=== PATIENT | male | born 2000 | race Hispanic/Latino ===

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

== ENCOUNTER 2018-04-29 20:35 | Emergency (ER) | payer BC ==
[2018-04-29] MEDS ORDERED: Ondansetron ODT 8 MG TAB ONE (21:47)
[2018-04-29] MEDS ORDERED: Lidocaine Viscous Sol 2% 15 ml UD Cup ONE (21:47)
[2018-04-29] MEDS ORDERED: Mag-Al 1200 mg/1200 mg/30 ML UDCUP ONE (21:47)
== END 2018-04-29 22:52 | disposition home or self-care (01) ==
LOC: ERS 20:35
DX: K29.70 Gastritis, unspecified, without bleeding (principal)
CPT/HCPCS: 99283

== ENCOUNTER 2018-07-30 20:10 | Emergency (ER) | payer BC, OTHER ==
[2018-07-30] MEDS ORDERED: Bacitracin Zinc 1 Packet ONE (20:38)
[2018-07-30] MEDS ORDERED: Ibuprofen 200 MG TAB ONE (20:59)
== END 2018-07-30 21:14 | disposition home or self-care (01) ==
LOC: ERS 20:10
DX: L91.0 Hypertrophic scar (principal)
CPT/HCPCS: 99283

== ENCOUNTER 2022-06-01 10:52 | Emergency (ER) | payer BC, OTHER, SELFPAY | END 2022-06-01 11:48 | disposition home or self-care (01) | LOC: ERS 10:52 | DX: R05.9 Cough, unspecified (principal); Z20.822 Contact with and (suspected) exposure to COVID-19 | CPT/HCPCS: 99283; U0003; U0005 ==

== ENCOUNTER 2022-07-16 11:03 | Emergency (ER) | payer SELFPAY ==
[2022-07-16] MEDS ORDERED: Acetaminophen 500 MG TAB ONE (12:05)
[2022-07-16] MEDS ORDERED: Ondansetron ODT 4 MG TAB ONE (12:05)
== END 2022-07-16 13:25 | disposition home or self-care (01) ==
LOC: ERS 11:03
DX: J10.1 Influenza due to other identified influenza virus with other respiratory manifestations (principal); Z20.822 Contact with and (suspected) exposure to COVID-19
CPT/HCPCS: 87081; 87430; 87804; 99283; Q0162; U0003; U0005

== ENCOUNTER 2023-04-30 20:32 | Emergency (ER) | payer SELFPAY ==
[2023-04-30] MEDS ORDERED: Ondansetron PF 4 MG/2 ML Vial ONE (21:46)
[2023-04-30] MEDS ORDERED: Acetaminophen 500 MG TAB ONE (21:46)
[2023-04-30] MEDS ORDERED: Ondansetron ODT 4 MG TAB ONE (21:47)
[2023-04-30 22:29] LABS: SARS-CoV-2 NAA Rapid Test Not Detected (NotDetected)
== END 2023-04-30 22:30 | disposition home or self-care (01) ==
LOC: ERS 20:32
DX: J02.9 Acute pharyngitis, unspecified (principal); Z20.822 Contact with and (suspected) exposure to COVID-19
CPT/HCPCS: 87081; 87430; 99284; J2405; Q0162

== ENCOUNTER 2023-05-02 11:40 | Emergency (ER) | payer SELFPAY | END 2023-05-02 13:21 | disposition home or self-care (01) | LOC: ERS 11:40 | DX: J06.9 Acute upper respiratory infection, unspecified (principal) | CPT/HCPCS: 99283 ==

== ENCOUNTER 2024-01-17 17:36 | Emergency (ER) | payer BC, SELFPAY | END 2024-01-17 19:20 | disposition home or self-care (01) | LOC: ERS 17:36 | DX: S60.512A Abrasion of left hand, initial encounter (principal); W25.XXXA Contact with sharp glass, initial encounter; Y92.009 Unspecified place in unspecified non-institutional (private) residence as the place of occurrence of the external cause ==

== ENCOUNTER 2024-01-20 22:37 | Emergency (ER) | payer BC | END 2024-01-20 22:39 | disposition home or self-care (01) | LOC: ERS 22:37 | DX: S60.811A Abrasion of right wrist, initial encounter (principal); Z55.6 Problems related to health literacy; W25.XXXA Contact with sharp glass, initial encounter | CPT/HCPCS: 99282 ==